=== PATIENT | female | born 1975 | race Two or more races ===

== ENCOUNTER 2022-05-21 19:38 | Emergency (ER) | payer MEDICAID ==
[~2022-05-21] VITALS: Ht 160 cm; Wt 68.2 kg
[2022-05-21 20:00] LABS: COVID AG,FIA SOURCE NASAL SWAB
[2022-05-21 20:28] LABS: INFLUENZA TYPE A NEGATIVE FOR TYPE A (NEGATIVE); INFLUENZA TYPE B NEGATIVE FOR TYPE B (NEGATIVE)
[2022-05-22] MEDS ORDERED: ACETAMINOPHEN 500 MG TABLET PO ONE (00:15)
[2022-05-22] MEDS ORDERED: ALBUTEROL SULFATE HFA 90 MCG/PUFF 8 GM INHALER IH ONE (00:15)
[2022-05-22] MEDS ORDERED: BENZONATATE 100 MG CAPSULE PO ONE (00:30)
[2022-05-22] MEDS ORDERED: BENZ-227 PO (02:56)
[2022-05-22 03:08] VITALS: BP 140/66
== END 2022-05-22 03:09 | disposition home or self-care (01) ==
LOC: EMS 19:40
DX: J06.9 Acute upper respiratory infection, unspecified (principal); Z20.822 Contact with and (suspected) exposure to COVID-19
CPT/HCPCS: 71046; 87804; 94640; 99285; J3535